=== PATIENT | male | born 1960 | race Caucasian/White ===

== ENCOUNTER → 2022-09-20 | Day surgery (SDC) | payer OTHER ==
[~2022-09-20] MED LIST: Lidocaine 1% PF 5 ML VIAL ONE; PROPOFOL 20 ML ONE
[2022-09-20 08:26] VITALS: BMI 23.3
[2022-09-20 10:40] LABS: #Basophils 0.1 10x3/uL (0.0-0.2); #Eosinphils 0.1 10x3/uL (0.0-0.5); #Monocytes 0.7 10x3/uL (0.0-1.1); #Neutrophils 5.3 10x3/uL (1.5-8.4); %Basophils 0.7 % (0.0-2.0); %Eosinophils 1.7 % (0.0-6.0); %Lymphocytes 15.4 % (18.0-47.0); %Monocytes 9.6 % (0.0-10.0); %Neutrophils 72.5 % (40.0-75.0); Hemoglobin 12.2 g/dL (13.5-17.5); Mean Corpuscular HGB CONC 33.3 g/dL (32.0-36.0); Mean Corpuscular Hemoglobin 27.7 pg (27.0-33.0); Mean Corpuscular Volume 83.2 fl (81.2-95.1); Platelet Count 214 10x3/uL (150-450); RBC Distribution Width 12.6 % (11.5-14.5); White Blood Cell (WBC) Count 7.3 10x3/uL (3.5-10.5)
[2022-09-20 10:46] LABS: ALT (SGPT) 18 U/L (8-55); AST (SGOT) 19 U/L (5-34); Albumin 3.9 g/dL (3.4-4.8); Alkaline Phosphatase 43 U/L (40-110); Bilirubin, Direct 0.3 mg/dL (0.1-0.3); Bilirubin, Total 0.7 mg/dL (0.2-1.2); Protein, Total 6.7 g/dL (5.8-8.1)
== END ==
LOC: CSHSDC 08:06
PROVIDERS: ATTEND Internal Medicine Gastroenterology
PROC: 0DBP8ZZ Excision of Rectum, Via Natural or Artificial Opening Endoscopic (ICD-10-PCS; principal; 2022-09-20)
DX: Z12.11 Encounter for screening for malignant neoplasm of colon (principal); C20 Malignant neoplasm of rectum; I25.10 Atherosclerotic heart disease of native coronary artery without angina pectoris; I10 Essential (primary) hypertension; E78.5 Hyperlipidemia, unspecified
CPT/HCPCS: 36415; 80076; 82378; 85025; 88305; J2704

== ENCOUNTER 2022-10-27 08:17 | Outpatient (CLI) | payer OTHER ==
[2022-10-27] MEDS ORDERED: Iopamidol 300 61% 100 ML VIAL FS ONE (09:35)
[2022-10-27] MEDS ORDERED: Magnevist 469MG/ML 20 ML VIAL ONE (09:40)
== END 2022-10-27 08:18 | disposition home or self-care (01) ==
LOC: CSHCT 08:17
PROVIDERS: ATTEND Internal Medicine Hematology & Oncology
DX: C20 Malignant neoplasm of rectum (principal); C21.8 Malignant neoplasm of overlapping sites of rectum, anus and anal canal
CPT/HCPCS: 71260; 72197; 74160

== ENCOUNTER 2024-05-17 09:26 | Outpatient (CLI) | payer BC | END 2024-05-17 09:27 | disposition home or self-care (01) | LOC: CSHCT 09:26 | PROVIDERS: ATTEND Internal Medicine Hematology & Oncology | DX: C20 Malignant neoplasm of rectum (principal); D50.0 Iron deficiency anemia secondary to blood loss (chronic) | CPT/HCPCS: 71260; 72197; 74160; 82565 ==